=== PATIENT | female | born 1995 | race Two or more races ===

== ENCOUNTER 2021-02-22 00:17 | Emergency (ER) | payer OTHER ==
[~2021-02-22] VITALS: Ht 175.3 cm; Wt 104.3 kg
[2021-02-22] MEDS ORDERED: LEVOTHYROXINE25 MCG PO (06:35)
[2021-03-04] MEDS ORDERED: ACETAMINOPHEN650 M2 (20:34)
== END 2021-02-22 06:40 | disposition home or self-care (01) ==
LOC: ER 00:17
DX: R07.89 Other chest pain (principal); T40.7X5A Adverse effect of cannabis (derivatives), initial encounter; Y92.89 Other specified places as the place of occurrence of the external cause; N93.8 Other specified abnormal uterine and vaginal bleeding; Z33.1 Pregnant state, incidental

== ENCOUNTER 2022-11-23 21:38 | Emergency (ER) | payer OTHER ==
[~2022-11-23] VITALS: Ht 175.3 cm; Wt 105.2 kg
[~2022-11-23 21:38] MED LIST: ACETAMINOPHEN650 M2; LEVOTHYROXINE25 MCG PO
== END 2022-11-24 05:07 | disposition home or self-care (01) ==
LOC: ER 21:38
DX: N23 Unspecified renal colic (principal); Z20.822 Contact with and (suspected) exposure to COVID-19; Z91.013 Allergy to seafood